=== PATIENT | female | born 1995 | race Caucasian/White ===

== ENCOUNTER 2016-12-08 20:43 | Emergency (ER) | payer OTHER ==
--- NOTE | 2016-12-08 22:46 | ED NURSING NOTES ---
Clinical Report - Nurses [facility] [address] [place] [address] 12/08/2016 20:44 Patient: NICKI CHAWLA TRIAGE Triage time 21:18. Acuity: LEVEL 3. Chief Complaint: ABDOMINAL PAIN, NAUSEA, VOMITING and DIARRHEA. ( Pt vomited about 20cc of yellow bile, while in the triage room.). --21:23 Damir Wheeler R.N. 21:18 12/08/16. BP: 134/86. HR: 105. RR: 22. O2 saturation: 99%. Temp: 97.4 F. --21:23 Damir Wheeler R.N. Weight: 91.6 kg stated. Height/Length: 65 inches Per Patient. BMI: 33.6. --21:17 Damir Wheeler R.N. Medications None. --21:19 Damir Wheeler R.N. Medication/allergy information source: the patient. --21:23 Damir Wheeler R.N. Allergies No Known Drug Allergy. --21:22 Damir Wheeler R.N. History Arrived by private vehicle. Historian: patient. Accompanied by friend. This started today. ( Pt came in with upper abdominal pain with n/v/d. Pt is having small blood in stool, per pt. Last bm was about 5 mins ago. Denies any blood in emesis). She has had nausea, vomiting, diarrhea and abdominal pain. Treatment HEALTH SERVICES ADMINISTRATOR: (antacid x 2). PAST MEDICAL HX: ( Pt has an IUD 2016.). SOCIAL HX: Never smoker. Occasional alcohol use; consumes beer occasionally. History of occasional drug use: marijuana. --21:23 Damir Wheeler R.N. PROBLEMS: no known problems. ADDITIONAL SURGERIES: no known surgeries. Interventions ID band on patient. To treatment room. --21:23 Damir Wheeler R.N. PHYSICAL ASSESSMENT Ambulatory to room. Patient gowned. GENERAL / NEURO / PSYCH: Alert. Oriented X 4. Appears anxious. HEENT: Mucous membranes are pink. RESPIRATORY: Respirations not labored. CVS: Capillary refill less than 2 seconds. SKIN: Skin is warm and dry. --21:51 Charity Vincent R.N. NURSING PROGRESS NOTES Head of bed elevated. Two patient identifiers checked. Call light placed in reach. Side rails up x 1. Bed placed in lowest position. Brakes of bed on. --21:51 Charity Vincent R.N. Patient ready for evaluation- chart flagged. --21:51 Charity Vincent R.N. 21:58 12/08/2016 One (1) unsuccessful IV access attempt including the right antecubital space. Applied bandage and manual pressure. --21:59 Charity Vincent R.N. 22:03 12/08/2016 Zofran ODT (Ondansetron) PO Oral Disintegrating Tablets 8 mg given. Allergies verified and confirmed 5 rights. --22:03 Charity Vincent R.N. 22:50 12/08/2016 Promethazine IM 25 mg given. Given in the right ventral gluteus. Allergies verified, confirmed 5 rights and sedative warning given to the patient. --22:50 Charity Vincent R.N. DISPOSITION / DISCHARGE Condition at departure: stable. No learning barriers present. Discharge instructions provided and reviewed with the patient. Reviewed medication(s) side effects, precautions, dosing and course information. Prescription(s) given to the patient. Patient verbalized understanding. Written instructions provided in Dutch. The patient was discharged home and accompanied by cane flume watchman. She left the Emergency Department ambulatory and via private vehicle. Software Licensing Executive driving. --23:09 Charity Vincent R.N. 23:12/08/16. BP: 112/98. HR: 96. RR: 15. O2 saturation: 98% on room air. Hardy-Kelly pain scale: 10. --23:09 Charity Vincent R.N. Locked/Released at 12/08/2016 23:10 by Charity Vincent R.N.
--- NOTE | 2016-12-08 22:46 | ED NURSING NOTES ---
Clinical Report - Nurses [facility] [address] [place] [address] 12/08/2016 20:44 Patient: NICKI CHAWLA TRIAGE Triage time 21:18. Acuity: LEVEL 3. Chief Complaint: ABDOMINAL PAIN, NAUSEA, VOMITING and DIARRHEA. ( Pt vomited about 20cc of yellow bile, while in the triage room.). --21:23 Damir Wheeler R.N. 21:18 12/08/16. BP: 134/86. HR: 105. RR: 22. O2 saturation: 99%. Temp: 97.4 F. --21:23 Damir Wheeler R.N. Weight: 91.6 kg stated. Height/Length: 65 inches Per Patient. BMI: 33.6. --21:17 Damir Wheeler R.N. Medications None. --21:19 Damir Wheeler R.N. Medication/allergy information source: the patient. --21:23 Damir Wheeler R.N. Allergies No Known Drug Allergy. --21:22 Damir Wheeler R.N. History Arrived by private vehicle. Historian: patient. Accompanied by friend. This started today. ( Pt came in with upper abdominal pain with n/v/d. Pt is having small blood in stool, per pt. Last bm was about 5 mins ago. Denies any blood in emesis). She has had nausea, vomiting, diarrhea and abdominal pain. Treatment JANITORIAL MANAGER: (antacid x 2). PAST MEDICAL HX: ( Pt has an IUD 2016.). SOCIAL HX: Never smoker. Occasional alcohol use; consumes beer occasionally. History of occasional drug use: marijuana. --21:23 Damir Wheeler R.N. PROBLEMS: no known problems. ADDITIONAL SURGERIES: no known surgeries. Interventions ID band on patient. To treatment room. --21:23 Damir Wheeler R.N. PHYSICAL ASSESSMENT Ambulatory to room. Patient gowned. GENERAL / NEURO / PSYCH: Alert. Oriented X 4. Appears anxious. HEENT: Mucous membranes are pink. RESPIRATORY: Respirations not labored. CVS: Capillary refill less than 2 seconds. SKIN: Skin is warm and dry. --21:51 Charity Vincent R.N. NURSING PROGRESS NOTES Head of bed elevated. Two patient identifiers checked. Call light placed in reach. Side rails up x 1. Bed placed in lowest position. Brakes of bed on. --21:51 Charity Vincent R.N. Patient ready for evaluation- chart flagged. --21:51 Charity Vincent R.N. 21:58 12/08/2016 One (1) unsuccessful IV access attempt including the right antecubital space. Applied bandage and manual pressure. --21:59 Charity Vincent R.N. 22:03 12/08/2016 Zofran ODT (Ondansetron) PO Oral Disintegrating Tablets 8 mg given. Allergies verified and confirmed 5 rights. --22:03 Charity Vincent R.N. 22:50 12/08/2016 Promethazine IM 25 mg given. Given in the right ventral gluteus. Allergies verified, confirmed 5 rights and sedative warning given to the patient. --22:50 Charity Vincent R.N. DISPOSITION / DISCHARGE Condition at departure: stable. No learning barriers present. Discharge instructions provided and reviewed with the patient. Reviewed medication(s) side effects, precautions, dosing and course information. Prescription(s) given to the patient. Patient verbalized understanding. Written instructions provided in Mexican. The patient was discharged home and accompanied by fastener sewing machine operator. She left the Emergency Department ambulatory and via private vehicle. Metal Buildings Assembler driving. --23:09 Charity Vincent R.N. 23:12/08/16. BP: 112/98. HR: 96. RR: 15. O2 saturation: 98% on room air. Hardy-Kelly pain scale: 10. --23:09 Charity Vincent R.N. Locked/Released at 12/08/2016 23:10 by Charity Vincent R.N.
--- NOTE | 2016-12-08 22:46 | ED CLINICAL REPORT ---
Clinical Report - Physicians/Mid Levels [facility] [address] [place] [place] [address] 12/08/2016 20:44 [id number] Time Seen: 21:55 Dec 08 2016. Arrived- By private vehicle. Historian- patient. HISTORY OF PRESENT ILLNESS Chief Complaint: VOMITING and DIARRHEA. This started just prior to arrival about 2 hours ago and is still present. It was abrupt in onset. The patient has had nausea, vomiting, diarrhea and mild, crampy abdominal pain. The pain is described as generalized. No black stools, bloody stools, flank pain, history of possible bad food exposure or known contact with a sick individual. Has not recently been on antibiotics. The illness is described as severe. Similar symptoms previously: None. Recent medical care: Not recently seen/assessed. REVIEW OF SYSTEMS No fever, difficulty with urination, dark urine, headache or cough. No chest pain, difficulty breathing, excessive urination, skin rash or jaundice. All systems otherwise negative, except as recorded above. PAST HISTORY Negative. No history of heart disease or lung disease. SOCIAL HISTORY Never smoker. Alcohol use. History of drug use: marijuana. ADDITIONAL NOTES The nursing notes have been reviewed. PHYSICAL EXAM Appearance: Alert. Oriented X3. She appears uncomfortable but is not toxic appearing. Eyes: Pupils equal, round and reactive to light. Eyes normal inspection. ENT: Nose normal. Pharynx normal. Neck: Normal inspection. Neck supple. No lymphadenopathy. CVS: Normal heart rate and rhythm. Heart sounds normal. Respiratory: No respiratory distress. Breath sounds normal. Abdomen: Soft. Mild tenderness diffusely. No organomegaly. No mass. No rebound tenderness or guarding. Back: Normal inspection. No CVA tenderness. Skin: Skin warm and dry. Normal skin color. No rash. Normal skin turgor. Extremities: Extremities exhibit normal ROM. No lower extremity edema. Neuro: Oriented X 3. No motor deficit. No sensory deficit. PROGRESS AND PROCEDURES Course of Care: Patient stable. Very benign abdominal exam. Short duration of symptoms and likely viral. Gave oral Zofran which she says she threw up but she didn't have any vomiting following this. Initially had an hCG and a UA ordered but she doesn't want to wait around for the results anymore. We'll give her IM Phenergan and discharged home. Warnings given to return here if she significantly worsens or doesn't improve over the next 48 hours. Disposition: Discharged in good and improved condition. CLINICAL IMPRESSION Acute gastroenteritis. INSTRUCTIONS Rest at home for two days until better. Do not work for two days until better. Drink plenty of fluids. No dietary restrictions. No alcohol until better. Warnings: SEDATIVE MEDICATION: You were given sedative medication during your visit. Do not drive or operate dangerous machinery today. GENERAL WARNINGS: Return or contact your physician immediately if your condition worsens or changes unexpectedly, if not improving as expected, or if other problems arise. SPECIFICALLY, return if you develop pain in the abdomen, fever, the inability to keep fluids down, blood in diarrhea or fainting. Prescription Medications: Zofran ODT 8 mg: take 1 orally every 8 hours as needed for nausea and vomiting. Dispense ten (10). No refill. Substitution is permissible. OTC Medications: Loperamide (available over the counter): take according to label instructions. Follow-up: Follow up with your doctor in three days if not better. Understanding of the discharge instructions verbalized by patient and family. (Electronically signed by Titi Washburn, 12/08/2016 23:53)
--- NOTE | 2016-12-08 22:46 | ED CLINICAL REPORT ---
Clinical Report - Physicians/Mid Levels [facility] [address] [place] [address] 12/08/2016 20:44 [id number] Time Seen: 21:55 Dec 08 2016. Arrived- By private vehicle. Historian- patient. HISTORY OF PRESENT ILLNESS Chief Complaint: VOMITING and DIARRHEA. This started just prior to arrival about 2 hours ago and is still present. It was abrupt in onset. The patient has had nausea, vomiting, diarrhea and mild, crampy abdominal pain. The pain is described as generalized. No black stools, bloody stools, flank pain, history of possible bad food exposure or known contact with a sick individual. Has not recently been on antibiotics. The illness is described as severe. Similar symptoms previously: None. Recent medical care: Not recently seen/assessed. REVIEW OF SYSTEMS No fever, difficulty with urination, dark urine, headache or cough. No chest pain, difficulty breathing, excessive urination, skin rash or jaundice. All systems otherwise negative, except as recorded above. PAST HISTORY Negative. No history of heart disease or lung disease. SOCIAL HISTORY Never smoker. Alcohol use. History of drug use: marijuana. ADDITIONAL NOTES The nursing notes have been reviewed. PHYSICAL EXAM Appearance: Alert. Oriented X3. She appears uncomfortable but is not toxic appearing. Eyes: Pupils equal, round and reactive to light. Eyes normal inspection. ENT: Nose normal. Pharynx normal. Neck: Normal inspection. Neck supple. No lymphadenopathy. CVS: Normal heart rate and rhythm. Heart sounds normal. Respiratory: No respiratory distress. Breath sounds normal. Abdomen: Soft. Mild tenderness diffusely. No organomegaly. No mass. No rebound tenderness or guarding. Back: Normal inspection. No CVA tenderness. Skin: Skin warm and dry. Normal skin color. No rash. Normal skin turgor. Extremities: Extremities exhibit normal ROM. No lower extremity edema. Neuro: Oriented X 3. No motor deficit. No sensory deficit. PROGRESS AND PROCEDURES Course of Care: Patient stable. Very benign abdominal exam. Short duration of symptoms and likely viral. Gave oral Zofran which she says she threw up but she didn't have any vomiting following this. Initially had an hCG and a UA ordered but she doesn't want to wait around for the results anymore. We'll give her IM Phenergan and discharged home. Warnings given to return here if she significantly worsens or doesn't improve over the next 48 hours. Disposition: Discharged in good and improved condition. CLINICAL IMPRESSION Acute gastroenteritis. INSTRUCTIONS Rest at home for two days until better. Do not work for two days until better. Drink plenty of fluids. No dietary restrictions. No alcohol until better. Warnings: SEDATIVE MEDICATION: You were given sedative medication during your visit. Do not drive or operate dangerous machinery today. GENERAL WARNINGS: Return or contact your physician immediately if your condition worsens or changes unexpectedly, if not improving as expected, or if other problems arise. SPECIFICALLY, return if you develop pain in the abdomen, fever, the inability to keep fluids down, blood in diarrhea or fainting. Prescription Medications: Zofran ODT 8 mg: take 1 orally every 8 hours as needed for nausea and vomiting. Dispense ten (10). No refill. Substitution is permissible. OTC Medications: Loperamide (available over the counter): take according to label instructions. Follow-up: Follow up with your doctor in three days if not better. Understanding of the discharge instructions verbalized by patient and family. (Electronically signed by Titi Washburn, 12/08/2016 23:53)
--- NOTE | 2016-12-08 22:46 | ED ORDER SUMMARY ---
..... Patient: NICKI CHAWLA OrderSheet [facility] VisitID: [id number] [address] [place] [address] 21y, F Registration Date/Time: 12/08/2016 ORDER SHEET Weight: 91.6 kg (stated) Allergies: No Known Drug Allergy GENERAL ORDERS: UA-Culture if indicated Urgent (21:59 12/08/2016 JCoates) (Ack 22:03 ALawrence ER Tech1) Urine Urgent (:59 12/08/2016 JCoates) (Ack 22:03 ALawrence ER Tech1) PO Fluids (Water) (22:40 12/08/2016 JCoates) (Ack 22:44 ASchmuck) MEDICATION ORDERS: Zofran ODT PO 8 mg (NOW) (21:59 12/08/2016 JCoates) (Ack 22:01 RCollier R.N.) (22:03 RCollier R.N.) Promethazine IM 25 mg (deep IM. Thanks.) (22:44 12/08/2016 JCoates) (Ack 22:44 ASchmuck) (22:50 RCollier R.N.) IV FLUIDS: ORDER SHEET NOTES: [Electronically signed by hCarity Vincent R.N. (23:10 12/08/2016)] [Electronically signed by Titi Washburn (23:53 12/08/2016)] [Electronically locked/signed by Charity Vincent R.N. (23:10 12/08/2016)]
--- NOTE | 2016-12-08 22:46 | ED ORDER SUMMARY ---
..... Patient: NICKI CHAWLA OrderSheet [facility] VisitID: [id number] [address] [place] [address] 21y, F Registration Date/Time: 12/08/2016 ORDER SHEET Weight: 91.6 kg (stated) Allergies: No Known Drug Allergy GENERAL ORDERS: UA-Culture if indicated Urgent (21:59 12/08/2016 JCoates) (Ack 22:03 ALawrence ER Tech1) Urine Urgent (:59 12/08/2016 JCoates) (Ack 22:03 ALawrence ER Tech1) PO Fluids (Water) (22:40 12/08/2016 JCoates) (Ack 22:44 ASchmuck) MEDICATION ORDERS: Zofran ODT PO 8 mg (NOW) (21:59 12/08/2016 JCoates) (Ack 22:01 RCollier R.N.) (22:03 RCollier R.N.) Promethazine IM 25 mg (deep IM. Thanks.) (22:44 12/08/2016 JCoates) (Ack 22:44 ASchmuck) (22:50 RCollier R.N.) IV FLUIDS: ORDER SHEET NOTES: [Electronically signed by Charity Vincent R.N. (23:10 12/08/2016)] [Electronically signed by Titi Washburn (23:53 12/08/2016)] [Electronically locked/signed by Charity Vincent R.N. (23:10 12/08/2016)]
--- NOTE | 2016-12-08 23:54 | ED MED RECONCILIATION SUMMARY ---
Patient: NICKI CHAWLA Medication Reconciliation Report [facility] VisitID: [id number] [address] [place] [address] 21y, F Registration Date/Time: 12/08/2016 Weight: 91.6 kg Height/Length: 65 in. BMI: 33.6 ALLERGIES: No Known Drug Allergy The patient's Home Medications are listed below: NONE. The source(s) of the original Home Medication information: patient The following Medications were given to the patient in the Emergency Department: Zofran ODT [PO] PO 8 mg, administered: 12/08/2016 10:03:00 PM Promethazine [IM] IM 25 mg, administered: 12/08/2016 10:50:00 PM The following Medications were prescribed to the patient: Loperamide (available over the counter): take according to label instructions. -- Titi Washburn Zofran ODT 8 mg: take 1 orally every 8 hours as needed for nausea and vomiting. Dispense ten (10). No refill. Substitution is permissible. -- Titi Washburn
--- NOTE | 2016-12-08 23:54 | ED MED RECONCILIATION SUMMARY ---
Patient: NICKI CHAWLA Medication Reconciliation Report [facility] VisitID: [id number] [address] [place] [address] 21y, F Registration Date/Time: 12/08/2016 Weight: 91.6 kg Height/Length: 65 in. BMI: 33.6 ALLERGIES: No Known Drug Allergy The patient's Home Medications are listed below: NONE. The source(s) of the original Home Medication information: patient The following Medications were given to the patient in the Emergency Department: Zofran ODT [PO] PO 8 mg, administered: 12/08/2016 10:03:00 PM Promethazine [IM] IM 25 mg, administered: 12/08/2016 10:50:00 PM The following Medications were prescribed to the patient: Loperamide (available over the counter): take according to label instructions. -- Titi Washburn Zofran ODT 8 mg: take 1 orally every 8 hours as needed for nausea and vomiting. Dispense ten (10). No refill. Substitution is permissible. -- Titi Washburn
--- NOTE | 2016-12-08 23:54 | ED MAR SUMMARY ---
..... Medication Administration Record [facility] [address] [place] [address] Patient: NICKI CHAWLA Visit ID: [id number] 21y, F Weight: 91.6 kg Height/Length: 65 in BMI: 33.6 ALLERGIES: No Known Drug Allergy Given 22:03 12/08/2016 Charity Vincent, RBladeN. Medication Administered: ZOFRAN ODT [PO] (ONDANSETRON), Dose: 8 mg Oral Disintegrating Tablets PO. Medication Ordered: Zofran ODT PO 8 mg (NOW). Given 22:50 12/08/2016 Charity Vincent, R.N. Medication Administered: PROMETHAZINE [IM], Dose: 25 mg IM. Medication Ordered: Promethazine IM 25 mg (deep IM. Thanks.).
--- NOTE | 2016-12-08 23:54 | ED DISCHARGE INSTRUCTIONS ---
Patient: NICKI CHAWLA General Instructions [facility] VisitID: [id number] [place] [address] 21y, F Registration Date/Time: 12/08/2016 Acute gastroenteritis. INSTRUCTIONS Rest at home for two days until better. Do not work for two days until better. Drink plenty of fluids. No dietary restrictions. No alcohol until better. Warnings: SEDATIVE MEDICATION: You were given sedative medication during your visit. Do not drive or operate dangerous machinery today. GENERAL WARNINGS: Return or contact your physician immediately if your condition worsens or changes unexpectedly, if not improving as expected, or if other problems arise. SPECIFICALLY, return if you develop pain in the abdomen, fever, the inability to keep fluids down, blood in diarrhea or fainting. Prescription Medications: Zofran ODT 8 mg: take 1 orally every 8 hours as needed for nausea and vomiting. Dispense ten (10). No refill. Substitution is permissible. OTC Medications: Loperamide (available over the counter): take according to label instructions. Follow-up: Follow up with your doctor in three days if not better. Understanding of the discharge instructions verbalized by patient and family. ADDITIONAL INFORMATION Viral Gastroenteritis (6Yr-Adult) Gastroenteritis is another name for thestomach flu.It is most often caused by a virus that affects the stomach and intestinal tract. Symptoms include stomach cramping and fever, vomiting and/or diarrhea, and can last from 2 to 7 days. The danger from repeated vomiting or diarrhea is dehydration. This is the loss of too much water and minerals from the body. When this occurs, body fluids must be replaced. Antibiotics are not effective for this illness, but simple home treatment will be helpful. Home Care If symptoms are severe, rest at home for the next 24 hours. Avoid tobacco, caffeine, and alcohol use, which can worsen symptoms. Acetaminophen (Tylenol) or ibuprofen (Motrin, Advil) may be usedfor fever or pain unless another medication was prescribed. NOTE: If you have chronic liver or kidney disease or ever had a stomach ulcer or GI bleeding, talk with your doctor before using these medicines. Aspirin should never be used in anyone under 18 years of age who is ill with a fever. It may cause severe liver damage. If medicines for diarrhea or vomiting were prescribed, be sure they are takenonly as directed. If vomiting, drink small amounts of clear fluids (such as water, sports drinks, clear sodas) at frequent intervals to prevent dehydration. Start with 1 to 2 tablespoons every 10 minutes. Once vomiting stops, follow these guidelines: During The First 12 To 24 Hours follow the diet below: Beverages: Sport drinks like Gatorade, soft drinks without caffeine; delvin gregory, mineral water (plain or flavored), decaffeinated tea and coffee. Soups: Clear broth, consomm and bouillon Desserts: Plain gelatin (Jell-O), Popsicles and fruit juice bars. During The Next 24 Hours you may add the following to the above: Hot cereal, plain toast, bread, rolls, crackers Plain noodles, rice, mashed potatoes, chicken noodle or rice soup Unsweetened canned fruit (avoid pineapple), bananas Limit fat intake to less than 15 grams per day by avoiding margarine, butter, oils, mayonnaise, sauces, gravies, fried foods, peanut butter, meat, poultry, and fish. Limit fiber; avoid raw or cooked vegetables, fresh fruits (except bananas), and bran cereals. Limit caffeine and chocolate. Do not use spices or seasonings except salt. During The Next 24 Hours The patient can gradually resume a normal diet as symptoms lessen. Preventing Spread Hand washing with soap and water is the best way to prevent the spread of viruses. Caregivers should wash their hands before andafter touching the sick person. The sick person, as well as everyone in the family,should wash their hands after using the toilet and before meals. Clean the toilet after each use. People with diarrhea should not prepare food for others. If you are preparing your own foods, wash your hands before and after. Follow Up with your doctor as advised. Call your doctor if you are not improving over the next 2 to 3 days. If a stool (diarrhea) sample was taken, you may call in 2 days (or as directed) for the results. Get Prompt Medical Attention if any of the following occur: Increasing abdominal pain Continued vomiting (unable to keep liquids down) Frequent diarrhea (more than 5 times a day) Blood in vomit or stool (black or red color) Dark urine, reduced urine output, or extreme thirst Weakness, dizziness, fainting Drowsiness, confusion, stiff neck, or seizure Fever of 100.4F (38C) oral or higher, not better with fever medication New rash Ondansetron Oral disintegrating tablet What is this medicine? ONDANSETRON (on RADU se zuleyka) is used to treat nausea and vomiting caused by chemotherapy. It is also used to prevent or treat nausea and vomiting after surgery. How should I use this medicine? These tablets are made to dissolve in the mouth. Do not try to push the tablet through the foil backing. With dry hands, peel away the foil backing and gently remove the tablet. Place the tablet in the mouth and allow it to dissolve, then swallow. While you may take these tablets with water, it is not necessary to do so. Talk to your bible teacher regarding the use of this medicine in children. Special care may be needed. What side effects may I notice from receiving this medicine? Side effects that you should report to your doctor or health farm or ranch animal caretaker as soon as possible: allergic reactions like skin rash, itching or hives, swelling of the face, lips, or tongue breathing problems dizziness fast or irregular heartbeat feeling faint or lightheaded, falls fever and chills swelling of the hands and feet tightness in the chest Side effects that usually do not require medical attention (report to your doctor or health farm or ranch animal caretaker if they continue or are bothersome): constipation or diarrhea headache What may interact with this medicine? Do not take this medicine with any of the following medications: -apomorphine -cisapride -dofetilide -dronedarone -pimozide -thioridazine -ziprasidone This medicine may also interact with the following medications: -carbamazepine -phenytoin -rifampicin -tramadol -other medicines that prolong the QT interval (cause an abnormal heart rhythm) What if I miss a dose? If you miss a dose, take it as soon as you can. If it is almost time for your next dose, take only that dose. Do not take double or extra doses. Where should I keep my medicine? Keep out of the reach of children. Store between 2 and 30 degrees C (36 and 86 degrees F). Throw away any unused medicine after the expiration date. What should I tell my health care provider before I take this medicine? They need to know if you have any of these conditions: heart disease history of irregular heartbeat liver disease low levels of magnesium or potassium in the blood an unusual or allergic reaction to ondansetron, granisetron, other medicines, foods, dyes, or preservatives or trying to get breast-feeding What should I watch for while using this medicine? Check with your doctor or health farm or ranch animal caretaker as soon as you can if you have any sign of an allergic reaction. You have been given the following additional information: Gastroenteritis, Viral (6Y-Adult) Ondansetron Oral disintegrating tablet Rest at home for two days until better. Do not work for two days until better. (Electronically signed by Titi Washburn, 12/08/2016 23:53)
--- NOTE | 2016-12-08 23:54 | ED MAR SUMMARY ---
..... Medication Administration [facility] [address] [place] [address] Patient: NICKI CHAWLA Visit ID: [id number] 21y, F Weight: 91.6 kg Height/Length: 65 in BMI: 33.6 ALLERGIES: No Known Drug Allergy Given 22:03 12/08/2016 Charity Vincent, RBladeN. Medication Administered: ZOFRAN ODT [PO] (ONDANSETRON), Dose: 8 mg Oral Disintegrating Tablets PO. Medication Ordered: Zofran ODT PO 8 mg (NOW). Given 22:50 12/08/2016 Charity Vincent, R.N. Medication Administered: PROMETHAZINE [IM], Dose: 25 mg IM. Medication Ordered: Promethazine IM 25 mg (deep IM. Thanks.).
== END 2016-12-08 23:10 | disposition home or self-care (01) ==
LOC: ED SRH 20:43
DX: K52.9 Noninfective gastroenteritis and colitis, unspecified (principal)